=== PATIENT | male | born 1950 | race Caucasian/White ===

== ENCOUNTER 2020-03-20 06:54 | Outpatient (CLI) | payer OTHER, SELFPAY ==
--- NOTE | 2020-03-20 07:00 | US_ITS ---
WS: [id number] RENAL ULTRASOUND HISTORY: CKD STAGE 3 COMPARISON: None available. TECHNIQUE: 2-D and color Doppler imaging of the kidney submitted. Right kidney: 12.0 cm x 6.4 cm x 6.3 cm. Normal echogenicity with no hydronephrosis or mass. Left kidney: 9.7 cm x 5.7 cm x 6.2 cm. Very mild atrophy of the LEFT kidney as compared to the RIGHT. No hydronephrosis or mass. Aorta: None abdominal aortic aneurysm. Aneurysm extends over a length of 6.4 cm with maximum diameter of 4.2 cm. Partial thrombus noted in the posterior RIGHT lateral aneurysm. Urinary Bladder: Normal distention. Mild prostate gland enlargement. US/US renal BI* [id number] IMPRESSION: 1. No renal obstruction. 2. Very mild atrophy of the LEFT kidney as compared to the RIGHT. 3. Known abdominal aortic aneurysm with a maximum diameter 4.2 cm. Similar siz e as compared to the prior CT.
== END 2020-03-20 06:55 | disposition home or self-care (01) ==
LOC: US 06:55
PROVIDERS: PCP Emergency Medicine Emergency Medical Services; Visit Provider Internal Medicine
DX: N18.31 Chronic kidney disease, stage 3a (principal); N26.1 Atrophy of kidney (terminal); I71.4 Abdominal aortic aneurysm, without rupture
CPT/HCPCS: 76770

== ENCOUNTER 2020-06-11 13:07 | Outpatient (CLI) | payer OTHER, SELFPAY ==
--- NOTE | 2020-06-11 13:26 | CT_ITS ---
WS: [id number] CTA ABDOMEN AND PELVIS TECHNIQUE: Noncontrast plus contrast enhanced CTA of the abdominal aorta with coronal and sagittal re formatted images and additional MIP Images. CLINICAL INFORMATION: AAA COMPARISON: CTA and DLP: 1077.[address] scans at [facility] use at least one of these dose optimization techniques: automat ed exposure control; mA and/or kV adjustment per patient size (includes targeted exams where dose is matched to clinical indication); or iterative reconstruction. FINDINGS: Advanced calcified atheromatous plaque abdominal aorta. Again seen is the infrarenal abdominal aortic aneurysm measuring 4.0 x 3.9 cm today extending over approximately 5.0 cm craniocaudal. This is not significantly changed since the prior examination. Normal bilateral common iliac arteries. Celiac and SMA are patent. Bilateral renal arteries are patent. DEB is patent. Moderate esophageal hiatal hernia has progressed compared to previous. Normal adrenal glands. Normal pancreas. Liver is normal in appearance. Diffuse fatty infiltration of the liver. No intra or extrahe patic biliary ductal dilatation. Normal gallbladder. Normal spleen. Stable small bilateral renal cysts. No hydronephrosis. Normal renal parenchymal enhanc ement. Sigmoid diverticulosis. No evidence of acute diverticulitis. Small fat-containing umbilical hernia. N o hydronephrosis in the right kidney CT/CT angio abdomen pelvis [id number] IMPRESSION: 1. Stable infrarenal abdominal aortic aneurysm measuring 4.0 x 3.9 cm. This is unchanged from previous. 2. Moderate to advanced calcified atheromatous disease abdominal aorta. 3. Moderate esophageal hiatal hernia has progressed compared to previous. 4. Sigmoid diverticulosis. No evidence of acute diverticulitis. 5. No significant change from previous.
[2020-06-11 14:19] LABS: Blood Urea Nitrogen 21 mg/dL (8-23)
[2020-06-11] MEDS: iodixanol 320 mg/mL 100mL Btl IV (14:32)
== END 2020-06-11 13:08 | disposition home or self-care (01) ==
LOC: RADWPI 13:12
PROVIDERS: PCP Emergency Medicine Emergency Medical Services; Visit Provider Thoracic Surgery (Cardiothoracic Vascular Surgery)
DX: I71.4 Abdominal aortic aneurysm, without rupture (principal); K57.30 Diverticulosis of large intestine without perforation or abscess without bleeding; K44.9 Diaphragmatic hernia without obstruction or gangrene; I70.0 Atherosclerosis of aorta
CPT/HCPCS: 74174; 82565; 84520; Q9967

== ENCOUNTER 2020-11-19 08:17 | Outpatient (CLI) | payer OTHER, SELFPAY ==
--- NOTE | 2020-11-19 08:15 | XR_ITS ---
WS: [id number] Exam: XR KUB [id number] Date/Time of Exam: 11/19/2020 8:15 AM Reason For Exam: UROLITHIASIS No bowel obstruction or free air. No calcifications project over the renal silhouettes. Calcified inf rarenal abdominal aortic aneurysm noted which shows little change since previous plain film study of 11/17/2018. Nonspecific small pelvic calcifications are noted bilaterally. Lumbar scoliosis with right convexity. Visualized organ margins are unremarkable. XR/XR KUB [id number] IMPRESSION: 1. No acute abdominal process. 2. Infrarenal abdominal aortic aneurysm showing no change by plain film measure ment. 3. No calcifications projected over the kidneys. Nonspecific bilateral pelvic c alcifications.
== END 2020-11-19 08:18 | disposition home or self-care (01) ==
LOC: RAD 08:25
PROVIDERS: PCP Emergency Medicine Emergency Medical Services; Visit Provider Urology
DX: N20.9 Urinary calculus, unspecified (principal); I71.4 Abdominal aortic aneurysm, without rupture
CPT/HCPCS: 74018; 81003

== ENCOUNTER 2021-08-05 12:02 | Outpatient (CLI) | payer OTHER, SELFPAY ==
--- NOTE | 2021-08-05 12:10 | CT_ITS ---
WS: [id number] CT ANGIOGRAPHY abdomen and pelvis HISTORY: I71.4 - Abdominal aortic aneurysm, without rupture TECHNIQUE: CT angiogram is performed during IV injection. Reformation images reviewed. All CT scans a [employer] use at least one of these dose optimization techniques: automated exposure contro l; mA and/or kV adjustment per patient size (includes targeted exams where dose is matched to clinica l indication); or iterative reconstruction. CONTRAST: Visipaque 320; 95 mL IV. DLP: 1123.89 mGy.cm COMPARISON: 06/11/2020 and 05/11/2019 Moderate sized hiatal hernia and mild distal esophageal wall thickening. Similar to the prior examina tion. Heart size is normal. No pericardial or pleural effusions. Mild diffuse hepatic steatosis. Gall bladder and spleen are normal. Mild hyperplasia of the adrenal glands but no mass. Normal pancreas. M ild renal atrophy bilaterally. There are a few very small indeterminate nodules within each kidney. T hese may be cysts or complex cysts. Some of these are hyperdense suggesting hemorrhage or even very e shorty renal cell neoplasms. These cannot be further characterized. Abdominal aorta: Extensive atherosclerotic plaque throughout the abdominal aorta. Aneurysmal dilatati on just above the aorta measures 4.3 cm x 4.2 cm. Very slight increase in size since the prior study. Near circumferential intraluminal thrombus. Good enhancement remains within the central aorta. Very mild atherosclerotic plaque involving the celiac axis. More focal plaque at the SMA origin but no hig h-grade stenosis. Only single-vessel renal arteries are identified with mild atherosclerotic plaque. DEB is still patent. Iliac arteries are patent with no aneurysm. Moderate calcified plaque with appro ximately 50% stenosis involving the distal RIGHT common iliac artery. No ascites or adenopathy. The appendix is normal. No GI tract obstruction. Numerous diverticula in th e sigmoid and descending colon with no acute diverticulitis. Prostate gland contains central calcifications with no significant encroachment into the urinary blad mitzi. Increase in the lumbar lordosis. Degenerative facet joint arthritis and disc space narrowing througho ut the lumbar spine. CT/CT angio abdomen pelvis [id number] IMPRESSION: 1. Very slight increase in size of the infrarenal abdominal aortic aneurysm no w measuring 4.3 x 4.2 cm, compared to 4.0 x 3.9 cm on 06/11/2020. 2. Sigmoid diverticulosis without acute diverticulitis. 3. Mild atrophy of each kidney with too small to characterize cortical mixed densities. 4. Hepatic steatosis. 5. Moderate size hiatal hernia with diffuse esophageal wall thickening distall y which is unchanged.
[2021-08-05 13:26] LABS: Blood Urea Nitrogen 18 mg/dL (8-23)
== END 2021-08-05 12:03 | disposition home or self-care (01) ==
LOC: RAD 12:03
PROVIDERS: PCP Emergency Medicine Emergency Medical Services; Visit Provider Thoracic Surgery (Cardiothoracic Vascular Surgery)
DX: I71.4 Abdominal aortic aneurysm, without rupture (principal); K57.30 Diverticulosis of large intestine without perforation or abscess without bleeding; N26.1 Atrophy of kidney (terminal); K76.0 Fatty (change of) liver, not elsewhere classified; K44.9 Diaphragmatic hernia without obstruction or gangrene
CPT/HCPCS: 74174; 82565; 84520; Q9967

== ENCOUNTER → 2021-09-12 10:34 | Outpatient (BNVA) | payer OTHER, SELFPAY | PROVIDERS: PCP Emergency Medicine Emergency Medical Services; Visit Provider Thoracic Surgery (Cardiothoracic Vascular Surgery) | DX: I71.4 Abdominal aortic aneurysm, without rupture (principal); Z87.891 Personal history of nicotine dependence | CPT/HCPCS: 99213 ==

== ENCOUNTER 2022-04-07 11:50 | Outpatient (CLI) | payer OTHER, SELFPAY ==
--- NOTE | 2022-04-07 12:15 | USCV_ITS ---
Rere Dede Age: 71 Gender: M : 1950 Exam Date: 04/07/2022 12:12 Ordering Phys: Srinivasan López MD (Andy) ([email or web address]) Technologist: Christopher Pelayo Exam Location: [facility] – [place] Indication: AAA HISTORY: Diameter (cm) AP x Transverse x Length Velocity (cm/s) Waveform Prox Aorta: 2.09 x 2.36 x 130.30 Mid Aorta: 2.73 x 2.87 x 95.00 Distal Aorta: 3.88 x 4.78 x 5.19 48.80 Right Iliac Prox: 1.16 x 1.28 x 84.30 Left Iliac Prox: 1.11 x 1.19 x 111.60 Stent Prox Landing x x Aneurysmal Sac Max x x Lt Lat Sac Dim Rt Lat Sac Dim Stent Dist Landing x x Right Iliac Stent x x Left Iliac Stent x x Right Renal Art Left Renal Art FINDINGS: Comparison:. 05/16/18. Mild increase in diameter of the AAA since 2018. Maximum diameter isnow 4.8 cm. Fusiform aneurysm with mild plaque. There is evidence of atherosclerotic plaque no significan stenosis in the right common iliac artery. There is evidence of atherosclerotic plaque no significan stenosis in the left common iliac artery. CONCLUSIONS AAA maximum diameter of 4.8 cm. Mild increase is size since 2018. Dr. Gilma Pacheco DO (Electronically Signed) Final Date: 07 April 2022 13:46 S
== END 2022-04-07 11:51 | disposition home or self-care (01) ==
LOC: RAD 11:51
PROVIDERS: PCP Emergency Medicine Emergency Medical Services; Visit Provider Thoracic Surgery (Cardiothoracic Vascular Surgery)
DX: I71.40 Abdominal aortic aneurysm, without rupture, unspecified (principal)
CPT/HCPCS: 93978

== ENCOUNTER → 2022-04-16 10:19 | Outpatient (BNVA) | payer OTHER, SELFPAY | PROVIDERS: PCP Emergency Medicine Emergency Medical Services; Visit Provider Thoracic Surgery (Cardiothoracic Vascular Surgery) | DX: I71.40 Abdominal aortic aneurysm, without rupture, unspecified (principal) | CPT/HCPCS: 99213 ==

== ENCOUNTER 2022-08-10 08:25 | Outpatient (CLI) | payer OTHER, SELFPAY ==
--- NOTE | 2022-08-10 09:00 | CT_ITS ---
WS: [id number] CTA ABDOMEN PELVIS TECHNIQUE: Contrast enhanced CTA of the abdominal aorta and pelvis with coronal and sagittal reformat william images and additional MIP Images. CLINICAL INFORMATION: AAA COMPARISON: CTa 08/05/2021 DLP: 810.[address] scans at [facility] use at least one of these dose optimization techniques: automated e xposure control; mA and/or kV adjustment per patient size (includes targeted exams where dose is matc hed to clinical indication); or iterative reconstruction. FINDINGS: Infrarenal abdominal aortic aneurysm measuring 4.1 x 4.2 x 5.2 cm unchanged compared to previous. Mild stenosis at the celiac origin. SMA is patent. Proximal renal arteries are patent. DEB is patent. Densely calcified iliac arteries. Lung bases are well aerated. Slight RIGHT basilar atelectasis. Moderate esophageal hiatal hernia. Adr enal glands are normal. Normal renal parenchymal enhancement. Tiny renal cortical lesions some too sm all to characterize. Enlarged prostate. Sigmoid diverticulosis. Tiny fat-containing umbilical hernia. Unchanged partially visualized fibrosis along the RIGHT hilum CT/CT angio abdomen pelvis [id number] IMPRESSION: 1. Stable infrarenal abdominal aortic aneurysm measuring 4.1 x 4.2 x 5.2 CM. 2. Sigmoid diverticulosis. 3. Moderate esophageal hiatal hernia. 4. No other significant interval changes.
[2022-08-10 09:01] LABS: Blood Urea Nitrogen 21 mg/dL (8-23)
[2022-08-10] MEDS: iohexol 350 mg/mL 500 mL Btl (per mL) IV (09:10)
== END 2022-08-10 08:26 | disposition home or self-care (01) ==
PROVIDERS: PCP Emergency Medicine Emergency Medical Services; Visit Provider Thoracic Surgery (Cardiothoracic Vascular Surgery)
DX: I71.43 Infrarenal abdominal aortic aneurysm, without rupture (principal); K57.30 Diverticulosis of large intestine without perforation or abscess without bleeding; K44.9 Diaphragmatic hernia without obstruction or gangrene
CPT/HCPCS: 74174; 82565; 84520; Q9967

== ENCOUNTER → 2022-09-10 12:58 | Outpatient (BNVA) | payer OTHER, SELFPAY | PROVIDERS: PCP Emergency Medicine Emergency Medical Services; Visit Provider Thoracic Surgery (Cardiothoracic Vascular Surgery) | DX: I71.43 Infrarenal abdominal aortic aneurysm, without rupture (principal); Z87.891 Personal history of nicotine dependence; Z79.82 Long term (current) use of aspirin | CPT/HCPCS: 99213 ==

== ENCOUNTER 2022-11-17 07:37 | Outpatient (CLI) | payer OTHER, SELFPAY ==
--- NOTE | 2022-11-17 07:46 | XR_ITS ---
WS: [id number] XR KUB [id number] REASON FOR EXAM: stones FINDINGS: No change compared to 11/19/2020. No urinary tract calculi are identified. No change in the partially calcified abdominal aortic aneurysm at L4. XR/XR KUB [id number] IMPRESSION: No urinary tract calculi identified. No change in the abdominal aortic aneurysm.
== END 2022-11-17 07:38 | disposition home or self-care (01) ==
PROVIDERS: PCP Emergency Medicine Emergency Medical Services; Visit Provider Urology
DX: N20.0 Calculus of kidney (principal)
CPT/HCPCS: 74018; 81003; 99213

== ENCOUNTER 2023-02-26 07:18 | Outpatient (CLI) | payer OTHER, SELFPAY ==
--- NOTE | 2023-02-26 07:45 | USCV_ITS ---
Rere Dede Age: 72 Gender: M : 1950 Exam Date: 02/26/2023 07:42 Ordering Phys: Srinivasan López MD (Andy) ([email or web address] [email or web address]) Technologist: BM Exam Location: [facility] [place] Indication: AAA HISTORY: Diameter (cm) AP x Transverse x Length Velocity (cm/s) Waveform Prox Aorta: 1.88 x 2.10 x 68.60 Triphasic Mid Aorta: 2.38 x 2.71 x 68.60 Triphasic Distal Aorta: 4.03 x 4.71 x 5.23 36.40 Biphasic Right Iliac Prox: 1.16 x 1.69 x 117.30 Biphasic Left Iliac Prox: 1.16 x 1.79 x 100.00 Biphasic Stent Prox Landing x x Aneurysmal Sac Max x x Lt Lat Sac Dim Rt Lat Sac Dim Stent Dist Landing x x Right Iliac Stent x x Left Iliac Stent x x Right Renal Art Left Renal Art FINDINGS: CONCLUSIONS Distal AAA measuring 4.0 x 4.7 x 5.2cm AP x transverse x CC Normal proximal iliac arteries Moderate calcified atheromatous plaque abdominal aorta Julián Barrera MD (Electronically Signed) Final Date: 26 February 2023 09:11 S
== END 2023-02-26 07:19 | disposition home or self-care (01) ==
LOC: RAD 07:19
PROVIDERS: PCP Emergency Medicine Emergency Medical Services; Visit Provider Thoracic Surgery (Cardiothoracic Vascular Surgery)
DX: I71.40 Abdominal aortic aneurysm, without rupture, unspecified (principal); I70.0 Atherosclerosis of aorta
CPT/HCPCS: 93978

== ENCOUNTER → 2023-03-25 13:25 | Outpatient (BNVA) | payer OTHER, SELFPAY | PROVIDERS: PCP Emergency Medicine Emergency Medical Services; Visit Provider Thoracic Surgery (Cardiothoracic Vascular Surgery) | DX: I71.40 Abdominal aortic aneurysm, without rupture, unspecified (principal); Z87.891 Personal history of nicotine dependence | CPT/HCPCS: 99213 ==